=== PATIENT | female | born 1985 | race Caucasian/White ===

== ENCOUNTER → 2025-02-15 | Day surgery (SDC) | payer OTHER | END | disposition home or self-care (01) | LOC: JRADUS-SUR 09:10 → JRAD 09:10 | PROVIDERS: ATTEND Obstetrics & Gynecology | PROC: BU18YZZ Fluoroscopy of Uterus and Fallopian Tubes using Other Contrast (ICD-10-PCS; principal; 2025-02-15) | DX: N97.8 Female infertility of other origin (principal) | CPT/HCPCS: 36415; 58340; 74740-TC-FY; 76000-TC-FY; 84144; 84702 ==